=== PATIENT | male | born 1980 | race Caucasian/White ===

== ENCOUNTER 2017-05-27 18:02 | Inpatient (IN) | payer OTHER ==
[~2017-05-27] VITALS: Ht 188 cm; Wt 78.8 kg
[~2017-05-27 18:02] MED LIST: DEXAMETHASONE 4 MG/ML, 1ML ONE; GLYCOPYRROLATE 0.2MG/1ML, 5ML ONE; NEOSTIGMINE 1 MG/ML, 10ML ONE; ONDANSETRON 2MG/ML, 2ML ONE; PHENYLEPHRINE 10 MG/ML ONE; PROPOFOL 10 MG/ML, 20ML ONE; ROCURONIUM 10 MG/ML,10ML ONE
[2017-05-27] MEDS ORDERED: PANTOPRAZOLE 80 MG in SODIUM CHLORIDE 0.9% 100 ML IV SCH (18:04)
[2017-05-27] MEDS ORDERED: PANTOPRAZOLE 40 MG IV ONE (18:16)
[2017-05-27] MEDS ORDERED: PLEASE ENTER HEIGHT AND WEIGHT MC SCH (18:30)
[2017-05-27] MEDS ORDERED: PANTOPRAZOLE 40 MG IV IVPush ONE (18:30)
[2017-05-27] MEDS ORDERED: SODIUM CHLORIDE 0.9% 1,000ML IVBOLUS ONE ×2 (18:30→19:00)
[2017-05-27] MEDS ORDERED: SODIUM CHLORIDE FLUSH 10ML SYR IVF ONE (18:30)
[2017-05-27] MEDS ORDERED: PLEASE ENTER ALLERGIES MC SCH (18:30)
[2017-05-27] MEDS ORDERED: SODIUM CHLORIDE 0.9% 1,000 ML IV ONE (18:37)
[2017-05-27] MEDS ORDERED: ALPR2TAB2 PO (18:40)
[2017-05-27] MEDS ORDERED: PIPERACILLIN/TAZO/PMX 3.375GM 50 ML ONE (18:42)
[2017-05-27 18:43] LABS: BASOPHILS % (AUTO) 0 % (0-1); EOSINOPHILS % (AUTO) 0 % (1-7); LYMPHOCYTES # (AUTO) 1.11 x10^3/uL (1-3.4); LYMPHOCYTES % (AUTO) 10 % (22-44); MD NO; MEAN CORPUSCULAR HEMOGLOBIN 29.6 pg (27.5-34.5); MEAN CORPUSCULAR HGB CONC 33.3 g/dL (33.2-36.2); MEAN CORPUSCULAR VOLUME 88.8 fL (81-97); MEAN PLATELET VOLUME 8.4 fL (7.4-10.4); MONOCYTES # (AUTO) 0.37 x10^3/uL (0.2-0.8); MONOCYTES % (AUTO) 3 % (2-9); NEUTROPHILS # (AUTO) 9.25 x10^3/uL (1.8-6.8); NEUTROPHILS % (AUTO) 86 % (42-75); PLATELET COUNT 262 x10^3/uL (130-400); RED BLOOD COUNT 6.14 x10^6/uL (4.38-5.82); RED CELL DISTRIBUTION WIDTH 15.3 % (9.4-14.8)
[2017-05-27 18:56] LABS: ALANINE AMINOTRANSFERASE 16 U/L (12-78); ALBUMIN 2.3 g/dL (3.4-5.0); ANION GAP 11 mmol/L (5-15); CALCIUM 7.9 mg/dL (8.5-10.1); CHLORIDE 103 mmol/L (98-107)
[2017-05-27 18:58] LABS: ALKALINE PHOSPHATASE 47 U/L (45-117); BILIRUBIN,TOTAL 0.4 mg/dL (0.2-1.0); INTERNATIONAL NORMALIZED RATIO 1.26 (0.93-1.1); TOTAL PROTEIN 5.2 g/dL (6.4-8.2)
[2017-05-27] MEDS ORDERED: PIPERACILLIN/TAZO/PMX 3.375GM 50 ML IVPB ONE (19:00)
[2017-05-27] MEDS ORDERED: FENTANYL PF 250 MCG/5ML ONE ×2 (19:26→19:59)
[2017-05-27] MEDS ORDERED: MIDAZOLAM 1 MG/ML, 2ML ONE (19:26)
[2017-05-27] MEDS ORDERED: FENTANYL PF 100 MCG/2ML IV PRN (20:00)
[2017-05-27] MEDS ORDERED: hydrALAzine 20 MG/ML, 1ML IV PRN (20:00)
[2017-05-27] MEDS ORDERED: HYDROmorphone 1 MG/ML, 1ML IV PRN (20:00)
[2017-05-27] MEDS ORDERED: MEPERIDINE/PF 25MG/0.5ML IVPush PRN (20:00)
[2017-05-27] MEDS ORDERED: ONDANSETRON 2MG/ML, 2ML IVPush PRN ×2 (20:00→22:30)
[2017-05-27] MEDS ORDERED: FENTANYL PF 100 MCG/2ML ONE (20:57)
[2017-05-27] MEDS ORDERED: HETASTARCH 0.9 % 500 ML ONE (21:07)
[2017-05-27] MEDS ORDERED: KETOROLAC 30 MG/1 ML ONE (21:39)
[2017-05-27] MEDS ORDERED: KETOROLAC 30 MG/1 ML IVPush SCH (22:00)
[2017-05-27] MEDS ORDERED: ACETAMINOPHEN 325 MG TABLET PO PRN (22:30)
[2017-05-27] MEDS ORDERED: SODIUM CHLORIDE 0.9%, 500ML IVBOLUS ONE ×2 (23:00)
[2017-05-27] MEDS: LACTATED RINGERS 1,000 ML IV SCH (23:00)
[2017-05-27] MEDS: PIPERACILLIN/TAZO/PMX 3.375GM 50 ML IV SCH (23:01)
[2017-05-27 23:10] VITALS: BP 92/64
[2017-05-27 23:42] LABS: ANION GAP 8 mmol/L (5-15); CALCIUM 7.3 mg/dL (8.5-10.1); CHLORIDE 108 mmol/L (98-107); CREATININE 1.35 mg/dL (0.7-1.3)
[2017-05-28 03:48] LABS: ANION GAP 6 mmol/L (5-15); BASOPHILS % (AUTO) 0 % (0-1); CALCIUM 7.2 mg/dL (8.5-10.1); CHLORIDE 108 mmol/L (98-107); CREATININE 1.11 mg/dL (0.7-1.3); EOSINOPHILS % (AUTO) 0 % (1-7); LYMPHOCYTES # (AUTO) 0.64 x10^3/uL (1-3.4); LYMPHOCYTES % (AUTO) 13 % (22-44); MD NO; MEAN CORPUSCULAR HEMOGLOBIN 29.5 pg (27.5-34.5); MEAN CORPUSCULAR HGB CONC 33.4 g/dL (33.2-36.2); MEAN CORPUSCULAR VOLUME 88.4 fL (81-97); MEAN PLATELET VOLUME 8.4 fL (7.4-10.4); MONOCYTES # (AUTO) 0.09 x10^3/uL (0.2-0.8); MONOCYTES % (AUTO) 2 % (2-9); NEUTROPHILS # (AUTO) 4.29 x10^3/uL (1.8-6.8); NEUTROPHILS % (AUTO) 85 % (42-75); PLATELET COUNT 182 x10^3/uL (130-400); RED BLOOD COUNT 4.91 x10^6/uL (4.38-5.82); RED CELL DISTRIBUTION WIDTH 15.1 % (9.4-14.8)
[2017-05-28] MEDS: LACTATED RINGERS 1,000 ML IV SCH (03:55)
[2017-05-28 04:00] VITALS: BP 93/58
[2017-05-28] MEDS: PIPERACILLIN/TAZO/PMX 3.375GM 50 ML IV SCH ×4 (05:43→23:13)
[2017-05-28] MEDS: OMEPRAZOLE 20 MG CAPSULE.DR PO SCH (08:17)
[2017-05-28] MEDS ORDERED: MAGNESIUM SULFATE PMX 2GM/50ML 50 ML IV ONE (08:30)
[2017-05-28] MEDS: SODIUM CHLORIDE 0.9% 1,000 ML IV SCH ×2 (09:08→20:20)
[2017-05-28 10:40] VITALS: BP 91/51
[2017-05-28 14:04] VITALS: BP 91/57
[2017-05-28] MEDS: ENOXAPARIN 40 MG/0.4 ML SQ SCH (20:00)
[2017-05-28 21:32] VITALS: BP 96/56
[2017-05-29 02:02] VITALS: BP 97/65
[2017-05-29] MEDS: PIPERACILLIN/TAZO/PMX 3.375GM 50 ML IV SCH ×4 (05:02→22:44)
[2017-05-29 05:35] LABS: ANION GAP 4 mmol/L (5-15); CALCIUM 7.7 mg/dL (8.5-10.1); CHLORIDE 106 mmol/L (98-107); CREATININE 0.79 mg/dL (0.7-1.3)
[2017-05-29 06:10] LABS: MEAN CORPUSCULAR HEMOGLOBIN 29.9 pg (27.5-34.5); MEAN CORPUSCULAR HGB CONC 33.9 g/dL (33.2-36.2); MEAN PLATELET VOLUME 7.9 fL (7.4-10.4); PLATELET COUNT 167 x10^3/uL (130-400); RED BLOOD COUNT 3.92 x10^6/uL (4.38-5.82); RED CELL DISTRIBUTION WIDTH 15.3 % (9.4-14.8)
[2017-05-29] MEDS: SODIUM CHLORIDE 0.9% 1,000 ML IV SCH (06:29)
[2017-05-29 06:30] LABS: MD YES
[2017-05-29 06:37] LABS: BAND#(MANUAL) 0.48 x10^3/uL; BANDS%(MANUAL) 10 % (0-7); LYMPH#(MANUAL) 1.25 x10^3/uL (1-3.4); LYMPHS% (MANUAL) 26 % (22-44); MONOS% (MANUAL) 2 % (2-9); SEG#(MANUAL) 2.98 x10^3/uL (1.8-6.8); SEGS% (MANUAL) 62 % (42-75)
[2017-05-29 06:38] LABS: <PLATELET ESTIMATE> ADEQUATE; <PLT MORPHOLOGY> NORMAL PLT MORPH; <RBC MORPHOLOGY> NORMAL; TOXIC GRAN 1+
[2017-05-29 07:14] VITALS: BP 99/65
[2017-05-29] MEDS: OMEPRAZOLE 20 MG CAPSULE.DR PO SCH (08:10)
[2017-05-29] MEDS ORDERED: NS + 20MEQ KCL 1,000 ML IV SCH (12:30)
[2017-05-29 16:32] VITALS: BP 103/70
[2017-05-29] MEDS: ENOXAPARIN 40 MG/0.4 ML SQ SCH (19:59)
[2017-05-29 20:14] VITALS: BP 111/72
[2017-05-30 00:49] VITALS: BP 116/75
[2017-05-30] MEDS: PIPERACILLIN/TAZO/PMX 3.375GM 50 ML IV SCH ×4 (04:44→23:32)
[2017-05-30 05:50] LABS: MEAN CORPUSCULAR HGB CONC 33.7 g/dL (33.2-36.2); MEAN CORPUSCULAR VOLUME 89.2 fL (81-97); PLATELET COUNT 189 x10^3/uL (130-400); RED BLOOD COUNT 3.77 x10^6/uL (4.38-5.82); RED CELL DISTRIBUTION WIDTH 15.2 % (9.4-14.8)
[2017-05-30 05:56] LABS: ANION GAP 8 mmol/L (5-15); CALCIUM 7.7 mg/dL (8.5-10.1); CHLORIDE 101 mmol/L (98-107)
[2017-05-30 06:12] LABS: MD YES
[2017-05-30 06:14] LABS: BAND#(MANUAL) 0.16 x10^3/uL; BANDS%(MANUAL) 2 % (0-7); EOS#(MANUAL) 0.08 x10^3/uL (0.0-0.4); EOS% (MANUAL) 1 % (1-7); LYMPH#(MANUAL) 0.65 x10^3/uL (1-3.4); LYMPHS% (MANUAL) 8 % (22-44); MONOS#(MANUAL) 0.32 x10^3/uL (0.3-2.7); MONOS% (MANUAL) 4 % (2-9); SEG#(MANUAL) 6.89 x10^3/uL (1.8-6.8); SEGS% (MANUAL) 85 % (42-75)
[2017-05-30 06:15] LABS: <RBC MORPHOLOGY> NORMAL
[2017-05-30 06:17] LABS: <PLATELET ESTIMATE> ADEQUATE; <PLT MORPHOLOGY> NORMAL PLT MORPH
[2017-05-30 07:53] VITALS: BP 112/73
[2017-05-30] MEDS: OMEPRAZOLE 20 MG CAPSULE.DR PO SCH (09:29)
[2017-05-30] MEDS: NS + 20MEQ KCL 1,000 ML IV SCH (09:30)
[2017-05-30 14:59] VITALS: BP 113/74
[2017-05-30 19:35] VITALS: BP 112/75
[2017-05-30] MEDS: ENOXAPARIN 40 MG/0.4 ML SQ SCH (19:45)
[2017-05-31 01:55] VITALS: BP 116/77
[2017-05-31] MEDS: PIPERACILLIN/TAZO/PMX 3.375GM 50 ML IV SCH ×3 (04:51→17:53)
[2017-05-31 05:25] LABS: ANION GAP 4 mmol/L (5-15); CALCIUM 7.8 mg/dL (8.5-10.1); CHLORIDE 101 mmol/L (98-107); CREATININE 0.72 mg/dL (0.7-1.3); MEAN CORPUSCULAR HEMOGLOBIN 29.7 pg (27.5-34.5); MEAN CORPUSCULAR HGB CONC 33.5 g/dL (33.2-36.2); MEAN CORPUSCULAR VOLUME 88.6 fL (81-97); MEAN PLATELET VOLUME 7.8 fL (7.4-10.4); PLATELET COUNT 206 x10^3/uL (130-400); RED BLOOD COUNT 4.09 x10^6/uL (4.38-5.82); RED CELL DISTRIBUTION WIDTH 15.4 % (9.4-14.8)
[2017-05-31 06:33] LABS: BASOPHILS # (AUTO) 0.01 x10^3/uL (0-0.1); BASOPHILS % (AUTO) 0 % (0-1); EOSINOPHILS # (AUTO) 0.05 x10^3/uL (0-0.4); EOSINOPHILS % (AUTO) 1 % (1-7); LYMPHOCYTES # (AUTO) 1.14 x10^3/uL (1-3.4); LYMPHOCYTES % (AUTO) 18 % (22-44); MD SCAN; MONOCYTES # (AUTO) 0.48 x10^3/uL (0.2-0.8); MONOCYTES % (AUTO) 7 % (2-9); NEUTROPHILS # (AUTO) 4.85 x10^3/uL (1.8-6.8); NEUTROPHILS % (AUTO) 74 % (42-75)
[2017-05-31 07:55] VITALS: BP 112/80
[2017-05-31] MEDS: OMEPRAZOLE 20 MG CAPSULE.DR PO SCH (10:03)
[2017-05-31] MEDS: NS + 20MEQ KCL 1,000 ML IV SCH (12:16)
[2017-05-31 15:30] VITALS: BP 100/54
[2017-05-31] MEDS: ENOXAPARIN 40 MG/0.4 ML SQ SCH (20:45)
[2017-05-31 20:58] VITALS: BP 110/76
[2017-06-01] MEDS: PIPERACILLIN/TAZO/PMX 3.375GM 50 ML IV SCH ×5 (00:13→23:12)
[2017-06-01 00:35] VITALS: BP 118/75
[2017-06-01 06:52] VITALS: BP 102/54
[2017-06-01] MEDS: OMEPRAZOLE 20 MG CAPSULE.DR PO SCH (08:47)
[2017-06-01 15:28] VITALS: BP 103/63
[2017-06-01] MEDS: ENOXAPARIN 40 MG/0.4 ML SQ SCH (21:25)
[2017-06-01 21:41] VITALS: BP 107/74
[2017-06-02 03:28] VITALS: BP 109/68
[2017-06-02] MEDS: NS + 20MEQ KCL 1,000 ML IV SCH (04:45)
[2017-06-02] MEDS: PIPERACILLIN/TAZO/PMX 3.375GM 50 ML IV SCH ×4 (04:46→23:00)
[2017-06-02 07:06] VITALS: BP 101/67
[2017-06-02] MEDS: OMEPRAZOLE 20 MG CAPSULE.DR PO SCH (08:23)
[2017-06-02] MEDS: KETOROLAC 30 MG/1 ML IVPush SCH ×2 (13:43→19:27)
[2017-06-02 14:43] VITALS: BP 103/68
[2017-06-02 20:16] VITALS: BP 103/62
[2017-06-02] MEDS: ENOXAPARIN 40 MG/0.4 ML SQ SCH (23:01)
[2017-06-03] MEDS: KETOROLAC 30 MG/1 ML IVPush SCH ×2 (00:43→08:00)
[2017-06-03 02:33] VITALS: BP 96/58
[2017-06-03 05:15] LABS: BASOPHILS # (AUTO) 0.01 x10^3/uL (0-0.1); BASOPHILS % (AUTO) 0 % (0-1); EOSINOPHILS # (AUTO) 0.23 x10^3/uL (0-0.4); EOSINOPHILS % (AUTO) 3 % (1-7); LYMPHOCYTES % (AUTO) 19 % (22-44); MD NO; MEAN CORPUSCULAR HEMOGLOBIN 29.7 pg (27.5-34.5); MEAN CORPUSCULAR HGB CONC 33.4 g/dL (33.2-36.2); MEAN CORPUSCULAR VOLUME 88.9 fL (81-97); MEAN PLATELET VOLUME 7.5 fL (7.4-10.4); MONOCYTES # (AUTO) 0.59 x10^3/uL (0.2-0.8); MONOCYTES % (AUTO) 7 % (2-9); NEUTROPHILS # (AUTO) 6.19 x10^3/uL (1.8-6.8); NEUTROPHILS % (AUTO) 72 % (42-75); PLATELET COUNT 306 x10^3/uL (130-400); RED BLOOD COUNT 3.98 x10^6/uL (4.38-5.82); RED CELL DISTRIBUTION WIDTH 15.2 % (9.4-14.8)
[2017-06-03 05:28] LABS: ANION GAP 6 mmol/L (5-15); CALCIUM 7.7 mg/dL (8.5-10.1); CHLORIDE 100 mmol/L (98-107); CREATININE 0.76 mg/dL (0.7-1.3)
[2017-06-03] MEDS: PIPERACILLIN/TAZO/PMX 3.375GM 50 ML IV SCH ×4 (05:46→23:06)
[2017-06-03 07:26] VITALS: BP 111/68
[2017-06-03] MEDS: OMEPRAZOLE 20 MG CAPSULE.DR PO SCH (08:00)
[2017-06-03] MEDS: HYDROcodone/APAP 5/325 TABLET PO PRN ×4 (08:01→21:12)
[2017-06-03] MEDS: NS + 20MEQ KCL 1,000 ML IV SCH (11:37)
[2017-06-03 13:08] VITALS: BP 106/65
[2017-06-03 19:10] VITALS: BP 110/68
[2017-06-03] MEDS: ENOXAPARIN 40 MG/0.4 ML SQ SCH (23:06)
[2017-06-04] MEDS: HYDROcodone/APAP 5/325 TABLET PO PRN ×6 (01:29→22:44)
[2017-06-04 02:48] VITALS: BP 105/62
[2017-06-04] MEDS: PIPERACILLIN/TAZO/PMX 3.375GM 50 ML IV SCH (05:04)
[2017-06-04 07:19] VITALS: BP 111/66
[2017-06-04] MEDS: OMEPRAZOLE 20 MG CAPSULE.DR PO SCH (08:05)
[2017-06-04] MEDS: AMOXICILLIN/CLAV 875-125MG TABLET PO SCH ×2 (09:57→20:59)
[2017-06-04 15:40] VITALS: BP 110/71
[2017-06-04 19:55] VITALS: BP 97/54
[2017-06-04] MEDS: ENOXAPARIN 40 MG/0.4 ML SQ SCH (22:47)
[2017-06-05 02:08] VITALS: BP 113/72
[2017-06-05] MEDS: HYDROcodone/APAP 5/325 TABLET PO PRN ×3 (02:50→12:07)
[2017-06-05] MEDS: OMEPRAZOLE 20 MG CAPSULE.DR PO SCH (07:40)
[2017-06-05] MEDS: AMOXICILLIN/CLAV 875-125MG TABLET PO SCH (09:16)
[2017-06-05] MEDS ORDERED: AMOX1TAB64 PO (11:54)
[2017-06-05 12:07] VITALS: BP 109/72
== END 2017-06-05 12:45 | disposition home or self-care (01) | DRG 853 ==
LOC: ED 18:41 → EDIP 18:42 → EDBD 18:42 → ED 18:53 → CCU 22:06 → 4NOR 05-28 10:48
PROVIDERS: ADMIT Colon & Rectal Surgery; ATTEND Colon & Rectal Surgery
PROC: 0DB80ZZ Excision of Small Intestine, Open Approach (ICD-10-PCS; principal; 2017-05-27 19:15)
DX: A41.9 Sepsis, unspecified organism (principal); K65.0 Generalized (acute) peritonitis; K63.1 Perforation of intestine (nontraumatic); E43 Unspecified severe protein-calorie malnutrition; N17.9 Acute kidney failure, unspecified; K92.0 Hematemesis; R18.8 Other ascites; K56.7 Ileus, unspecified; K57.92 Diverticulitis of intestine, part unspecified, without perforation or abscess without bleeding; I95.0 Idiopathic hypotension; Z68.22 Body mass index [BMI] 22.0-22.9, adult; Z87.891 Personal history of nicotine dependence
CPT/HCPCS: 36415; 74022; 80048; 80053; 83605; 83690; 83735; 85025; 85610; 85730; 86677; 86850; 86900; 87040; 87070; 87075; 87077; 87081; 87186; 87205; 88307; 93005; 96365; 96375; 96376; J1100; J1650; J1885; J2250; J2270; J2405; J2543; J2704; J2710; J3010; J3480; J3490; C1765; C9113; J2370; J3475; J7030; J7040; J7120